=== PATIENT | male | born 1990 | race Caucasian/White ===

== ENCOUNTER 2016-11-14 10:30 | Emergency (ER) | payer OTHER ==
[~2016-11-14] VITALS: Ht 182.9 cm; Wt 78.0 kg
[~2016-11-14 10:30] MED LIST: ADAL1INJ; FLEX10TA PO; LORTA5 PO
[2016-11-14 10:31] VITALS: BP 118/85; PULSE 86; RESP 18; TEMP 98.4; O2SAT 99
[2016-11-14] MEDS ORDERED: HYDR-3516 PO (11:09)
[2016-11-14] MEDS ORDERED: NAPR500 PO (11:09)
[2016-11-14] MEDS ORDERED: PRED5TAB PO (11:09)
--- NOTE | 2016-11-14 11:28 | PD ---
HPI Chief Complaint: Back/ Neck Pain or Injury Time Seen by Provider: 11:15 Travel History International Travel<30 days: No Contact w/Intl Traveler<30days: No Traveled to known affect area: No History of Present Illness HPI 26-year-old Taj[place] male presents the emergency Department with sudden onset left sided lower thoracic upper lumbar pain and spasm. Patient works where he has to lift quite often, he strained himself moving some [employer] gain pieces. He states it really wasn't sore until he woke up this morning where it was very stiff and spasmodic. He denies [place], urinary symptoms, fever, chills, shortness of breath, or cough. Currently pain is a 8 out of 10 with movement. He has no known drug allergies. PFSH Past Medical History Arthritis: Yes (RHEUMATOID) Autoimmune Disease: Yes Anxiety: No Depression: No Cardiovascular Problems: No Diminished Hearing: No Genitourinary: No Immune Disorder: Yes (RA) Musculoskeletal: Yes (JOINT PAIN) Neurologic: No Psychiatric: No Respiratory: No Immunizations Current: No ?: Not Past Surgical History Surgical History: No Previous Surgery Other Surgery: No Social History Alcohol Use: Yes (OCC) Tobacco Use: No Substance Use: No Allergies-Medications (Allergen,Severity, Reaction): Coded Allergies: No Known Allergies (Verified , 04/02/13) Reported Meds & Prescriptions Reported Meds & Active Scripts Active Reported Naprosyn (Naproxen) 500 Mg Tab 500 Mg PO BID Hydrocodone-Acetaminophen 5-325 mg Tab 1 Tab PO Q6H Prednisone 5 Mg Tab 5 Mg PO DAILY Review of Systems Except as stated in HPI: all other systems reviewed are Neg General / Constitutional: No: Fever Eyes: No: Visual changes HENT: No: Headaches Cardiovascular: No: Chest Pain or Discomfort Respiratory: No: Shortness of Breath Gastrointestinal: No: Abdominal Pain Genitourinary: No: Dysuria Musculoskeletal: Positive: Myalgias, Limited ROM, Pain Skin: No Rash Neurologic: No: Weakness Psychiatric: No: Depression Endocrine: No: Polydipsia Hematologic/Lymphatic: No: Easy Bruising Physical Exam Narrative GENERAL: Patient appears in moderate distress. Moving guardedly. SKIN: Warm and dry. Normal color. Normal turgor. No rash. HEAD: Atraumatic. Normocephalic. EYES: Pupils equal and round. No scleral icterus. No injection or drainage. ENT: No nasal bleeding or discharge. Mucous membranes pink and moist. Pharynx is clear. Airway is patent NECK: Trachea midline. No bony tenderness or step-off. Range motion is full and nontender. CARDIOVASCULAR: Regular rate and rhythm. RESPIRATORY: No accessory muscle use. Clear to auscultation. Breath sounds equal bilaterally. MUSCULOSKELETAL: Extremities without clubbing, cyanosis, or edema. No obvious deformities. Patient has no bony tenderness of the thoracic or lumbar spine. Patient is soft tissue tenderness and spasm along the left paraspinous muscles from the mid thoracic to the upper lumbar region. He has no radicular symptoms in the lower extremities. NEUROLOGICAL: Awake and alert. No obvious cranial nerve deficits. Motor grossly within normal limits. Five out of 5 muscle strength in the arms and legs. Normal speech. PSYCHIATRIC: Appropriate mood and affect; insight and judgment normal. Data Data Last Documented VS Vital Signs Date Time Temp Pulse Resp B/P Pulse Ox O2 Delivery O2 Flow Rate FiO2 11/14/16 10:31 98.4 86 18 118/85 99 Room Air [facility] Medical Decision Making Medical Screen Exam Complete: Yes Emergency Medical Condition: Yes Differential Diagnosis Thoracic strain. Lumbar strain. Muscle spasm. Narrative Course Patient is stable at time of exam. Radiographic imaging is not felt warranted based on my history and physical. Patient is given Toradol 60 mg IM. Patient is treated with 800 mg ibuprofen 3 times a day #30. Patient take Tylenol as well. Patient also given Flexeril 10 mg 1-3 times daily when necessary muscle spasm # 15. Patient is use heat, ice, and gentle stretching as instructed. Work note is given for today. Patient follow up if symptoms do not improve or worsen as needed. Diagnosis Primary Impression: Acute thoracic myofascial strain Qualified Code: S29.019A - Acute thoracic myofascial strain, initial encounter Additional Impression: Acute lumbar myofascial strain Qualified Code: S39.012A - Acute myofascial strain of lumbar region, initial encounter Referrals: [facility] Patient Instructions: General Instructions, Lower Back Exercises (ED), Muscle Spasm (ED), Upper Back Exercises (GEN) Departure Forms: Work Release Enter return to work date: Nov 15, 2016 Additional Instructions: Radiographic imaging is not felt warranted based on my history and physical. Patient is given Toradol 60 mg IM. Patient is treated with 800 mg ibuprofen 3 times a day #30. Patient take Tylenol as well. Patient also given Flexeril 10 mg 1-3 times daily when necessary muscle spasm # 15. Patient is use heat, ice, and gentle stretching as instructed. Work note is given for today. Patient follow up if symptoms do not improve or worsen as needed. Med/Other Pt SpecificInfo: Prescription(s) given Disposition: 01 DISCHARGE HOME Condition: Stable Neil Patterson Nov 14, 2016 11:28
[2016-11-14] MEDS ORDERED: CYCL1TAB29 PO (11:29)
[2016-11-14] MEDS ORDERED: IBUP800T23 PO (11:29)
[2016-11-14] MEDS ORDERED: KETOROLAC TROMETHAMINE 60 MG/2 ML (IM) VIAL IM ONE (11:30)
== END 2016-11-14 11:59 | disposition home or self-care (01) ==
LOC: NEPK 10:30
DX: S29.019A Strain of muscle and tendon of unspecified wall of thorax, initial encounter (principal); S39.012A Strain of muscle, fascia and tendon of lower back, initial encounter; X50.0XXA Overexertion from strenuous movement or load, initial encounter; M06.9 Rheumatoid arthritis, unspecified
CPT/HCPCS: 96372; 99284; J1885